=== PATIENT | female | born 1940 | race African-American/Black ===

== ENCOUNTER 2024-06-12 10:42 | Emergency (ER) | payer OTHER ==
[2024-06-12 11:03] VITALS: RESP 18; TEMP 97.5; BMI 29.1
[2024-06-12] MEDS: SODIUM CHLORIDE 0.9% 500 ML INFUS.BAG IV ONE (12:20)
[2024-06-12 12:34] LABS: EOS % 1.8 % (0-4.5); HEMATOCRIT 34.8 % (32.4-45.2); HEMOGLOBIN 11.2 GM/dL (10.7-15.3); LYMPH % 34.2 % (8-40); MCH 28.7 pg (25.7-33.7); MCHC 32.2 g/dl (32.0-36.0); MEAN CELL VOLUME 89.4 fl (80-96); MEAN PLT VOLUME 8.5 fl (7.5-11.1); MONO % 7.4 % (3.8-10.2); NEUT % 55.6 % (42.8-82.8); PLATELET COUNT 311 10^3/uL (134-434); RBC 3.89 M/mm3 (3.60-5.2); RDW 13.6 % (11.6-15.6); WHITE BLOOD COUNT 5.1 K/mm3 (4.0-10.0)
[2024-06-12 12:40] LABS: INR 0.97 (0.83-1.09); PROTHROMBIN TIME (PATIENT) 11.2 SEC (9.7-13.0)
[2024-06-12 12:44] LABS: ACTIVATED PTT 29.4 SECONDS (25.2-36.5)
[2024-06-12] MEDS ORDERED: MAGNESIUM CITRATE 300 ML BOTTLE ONE (12:47)
[2024-06-12] MEDS: MAGNESIUM CITRATE 300 ML BOTTLE PO ONE (12:52)
[2024-06-12 13:01] LABS: POTASSIUM 4.2 mmol/L (3.5-5.1)
[2024-06-12 13:02] LABS: BLOOD UREA NITROGEN 18.4 mg/dL (7-18); CALCIUM 10.2 mg/dL (8.5-10.1); MAGNESIUM 2.2 mg/dL (1.8-2.4)
[2024-06-12 13:06] LABS: CREATININE 0.9 mg/dL (0.55-1.3)
[2024-06-12 13:07] LABS: BILIRUBIN,TOTAL 0.4 mg/dL (0.2-1); TOT PROT 7.8 g/dl (6.4-8.2)
[2024-06-12 14:54] LABS: HCV DIAGNOSTIC IN-HOUSE W/RFLX NON-REACTIVE (NONREACTIVE); HIV INTERPRETATION NEGATIVE (NEGATIVE)
[2024-06-12 15:01] LABS: URINE APPEARANCE CLEAR; URINE BILIRUBIN NEGATIVE (NEGATIVE); URINE COLOR YELLOW; URINE GLUCOSE (UA) NEGATIVE (NEGATIVE); URINE KETONE NEGATIVE (NEGATIVE); URINE LEUK ESTERASE 1+ (NEGATIVE); URINE NITRITE NEGATIVE (NEGATIVE); URINE PROTEIN NEGATIVE (NEGATIVE); URINE UROBILINOGEN 0.2 mg/dL (0.2-1.0)
[2024-06-12 15:18] LABS: EPI CELLS 10 /uL (0-25.1); HYALINE CASTS 1 /uL (0-3.1); URINE BACTERIA 19 /uL (0-1359); URINE RBC 11 /uL (0-23.9); URINE WBC 24 /uL (0-25.8)
[2024-06-12 16:10] VITALS: BP 122/78; PULSE 80
== END 2024-06-12 16:09 | disposition home or self-care (01) ==
LOC: JER 10:42
DX: K59.00 Constipation, unspecified (principal); R63.0 Anorexia; K80.20 Calculus of gallbladder without cholecystitis without obstruction; Z20.822 Contact with and (suspected) exposure to COVID-19
CPT/HCPCS: 0241U-QW; 36415; 74177-TC; 80053; 81003; 83690; 83735; 85025; 85610; 85730; 86803; 87086; 87389; 93005; 93010; 99285-25